=== PATIENT | female | born 1965 | race Caucasian/White ===

== ENCOUNTER 2021-09-22 15:31 | Emergency (ER) | payer OTHER ==
[~2021-09-22] VITALS: Wt 74.8 kg
[2021-09-22 17:20] LABS: BASO % 0.6 % (0.0-1.0); EOS % 0.6 % (1.0-4.0); HEMATOCRIT 41.4 % (37.0-47.0); LYMPH # 0.9 10*3/uL (1.3-4.4); LYMPH % 17.6 % (27.0-41.0); MEAN CELL VOLUME 84.5 fl (81.0-99.0); MEAN CORPUSCULAR HGB 27.8 pg (27.0-31.0); MEAN CORPUSCULAR HGB CONC 32.9 g/dl (33.0-37.0); MEAN PLATELET VOLUME 8.8 fl (9.6-12.3); MONO # 0.3 10*3/uL (0.1-1.0); NEUT # 3.6 10*3/uL (2.3-7.9); NEUT % 73.8 % (47.0-73.0); PLATELET COUNT AUTOMATED 244 10*3/uL (130-400); RED CELL DISTRI WIDTH 13.5 % (0-14.5); WHITE BLOOD COUNT 4.8 10*3/uL (4.8-10.8)
[2021-09-22 17:38] LABS: ALKALINE PHOSPHATASE 65 U/L (45-117); BUN 14 mg/dl (7-24); CHLORIDE 105 mmol/L (98-107); CREATININE 0.87 mg/dL (0.55-1.02); POTASSIUM 3.9 mmol/L (3.5-5.1); SGOT/AST 21 IU/L (3-35); SGPT/ALT 24 U/L (12-78); SODIUM 138 mmol/L (136-145)
[2021-09-22 17:46] LABS: ACT PARTIAL THROMBO TIME 23.8 SECONDS (20.0-32.1)
[2021-09-22] MEDS ORDERED: Percocet 325 MG1 TAB PO (20:18)
== END 2021-09-22 20:25 | disposition home or self-care (01) ==
LOC: ED 15:31
PROVIDERS: Emergency Medicine
DX: M54.50 Low back pain, unspecified (principal); W18.30XA Fall on same level, unspecified, initial encounter; Y93.01 Activity, walking, marching and hiking; Y92.098 Other place in other non-institutional residence as the place of occurrence of the external cause; Y99.9 Unspecified external cause status

== ENCOUNTER 2023-08-03 18:38 | Emergency (ER) | payer BC ==
[~2023-08-03] VITALS: Ht 170.1 cm; Wt 72.6 kg
[~2023-08-03 18:38] MED LIST: Percocet 325 MG1 TAB PO
[2023-08-03] MEDS ORDERED: SODIUM CHLORIDE 0.9% 1,000 ML IV ONE (20:10)
[2023-08-03] MEDS ORDERED: Metoclopramide Hydrochloride 10 MG/2 ML AMP IV ONE (20:10)
[2023-08-03] MEDS ORDERED: IBUPROFEN 800 MG TAB PO ONE (20:10)
[2023-08-03] MEDS ORDERED: diphenhydrAMINE hydrochloride 50 MG/ML VIAL IV ONE (20:10)
[2023-08-03 20:35] LABS: HEMATOCRIT 43.1 % (37.0-47.0); MEAN CELL VOLUME 85.9 fl (81.0-99.0); MEAN CORPUSCULAR HGB 29.5 pg (27.0-31.0); MEAN CORPUSCULAR HGB CONC 34.3 g/dl (33.0-37.0); MEAN PLATELET VOLUME 9.1 fl (9.6-12.3); PLATELET COUNT AUTOMATED 206 10*3/uL (130-400); RED BLOOD COUNT 5.02 10*6/uL (4.10-5.10); RED CELL DISTRI WIDTH 12.1 % (0-14.5); WHITE BLOOD COUNT 4.3 10*3/uL (4.8-10.8)
[2023-08-03 20:37] LABS: MANUAL DIFF REFLEX YES
[2023-08-03 20:51] LABS: POTASSIUM 2.8 mmol/L (3.4-5.1); TOTAL PROTEIN 7.3 gm/dL (6.0-8.0)
[2023-08-03 21:01] LABS: BASOPHILS 1 % (0-1); PLATELET SUFFICIENCY NORMAL (NORMAL); TOTAL CELLS COUNTED 100 #CELLS
[2023-08-03 21:02] LABS: BURR CELLS MODERATE; ROULEAUX SLIGHT
[2023-08-03] MEDS ORDERED: POTASSIUM CHLORIDE 20 MEQ TAB PO ONE (21:45)
[2023-08-03] MEDS ORDERED: ONDANSETRON4 MG SL (21:48)
[2023-08-04] MEDS ORDERED: CEPHALEXIN500 M1 PO (15:52)
== END 2023-08-03 22:26 | disposition home or self-care (01) ==
LOC: ED 18:38
PROVIDERS: Nurse Practitioner
DX: A08.4 Viral intestinal infection, unspecified (principal); R11.2 Nausea with vomiting, unspecified

== ENCOUNTER 2023-08-04 13:15 | Emergency (ER) | payer BC ==
[~2023-08-04] VITALS: Ht 165.1 cm; Wt 61.2 kg
[~2023-08-04 13:15] MED LIST changes: +ONDANSETRON4 MG SL
[2023-08-04 14:49] LABS: HEMATOCRIT 43.1 % (37.0-47.0); MEAN CELL VOLUME 86.9 fl (81.0-99.0); MEAN CORPUSCULAR HGB 29.4 pg (27.0-31.0); MEAN CORPUSCULAR HGB CONC 33.9 g/dl (33.0-37.0); MEAN PLATELET VOLUME 9.2 fl (9.6-12.3); PLATELET COUNT AUTOMATED 225 10*3/uL (130-400); RED BLOOD COUNT 4.96 10*6/uL (4.10-5.10); RED CELL DISTRI WIDTH 12.2 % (0-14.5); WHITE BLOOD COUNT 6.8 10*3/uL (4.8-10.8)
[2023-08-04 15:06] LABS: MANUAL DIFF REFLEX YES
[2023-08-04 15:38] LABS: BURR CELLS FEW; PLATELET SUFFICIENCY NORMAL (NORMAL); POLYCHROMASIA SLIGHT; TOTAL CELLS COUNTED 100 #CELLS
[2023-08-04] MEDS ORDERED: CEPHALEXIN500 M1 PO (15:52)
== END 2023-08-04 16:20 | disposition home or self-care (01) ==
LOC: ED 13:15
PROVIDERS: Emergency Medicine
DX: R78.81 Bacteremia (principal); R19.7 Diarrhea, unspecified; R10.9 Unspecified abdominal pain; R11.2 Nausea with vomiting, unspecified